=== PATIENT | male | born 1975 | race Caucasian/White ===

== ENCOUNTER 2019-01-02 19:56 | Emergency (ER) | payer OTHER ==
[2019-01-02] MEDS ORDERED: NAPROXEN 250 MG TABLET PO STA (21:10)
[2019-01-02] MEDS ORDERED: DEXAMETHASONE 10 MG/ML VIAL PO STA (21:10)
[2019-01-02] MEDS ORDERED: diphenhydrAMINE 25 MG CAPSULE PO STA (21:11)
--- NOTE | 2019-01-02 21:14 | ED Physician Documentation ---
History of Present Illness - Stated complaint Stated Complaint: SORE THROAT/FEVER - Chief complaint Chief Complaint: General - Additonal information Additional information: 43-year-old male with 3 days of fever, chills, body aches, sore throat and generally not feeling well. The patient denies chest pain, shortness of breath or abdominal pain. The patient's symptoms improved with Tylenol. No other associated symptoms. Review of Systems Constitutional: reports: Fever, Chills, Myalgias, Fatigue Eyes: denies: Discharge Ears: denies: Ear pain Nose: reports: Congestion Throat: reports: Sore throat Cardiac: denies: Chest pain / pressure Respiratory: reports: Cough GI: denies: Abdominal Pain : denies: Dysuria Skin: denies: Rash Musculoskeletal: denies: Neck pain Neurologic: denies: Generalized weakness PD PAST MEDICAL HISTORY - Past Medical History Past Medical History: No - Past Surgical History Past Surgical History: No - Present Medications Home Medications: Ambulatory Orders Medication Instructions Recorded Confirmed No Known Home Medications 01/02/19 01/02/19 - Allergies Allergies/Adverse Reactions: Allergies Allergy/AdvReac Type Severity Reaction Status Date / Time No Known Drug Allergies Allergy Verified 01/02/19 20:03 - Social History Does the pt smoke?: No Smoking Status: Never smoker Does the pt drink ETOH?: No Does the pt have substance abuse?: No - Immunizations Immunizations are current?: Yes - POLST Patient has POLST: No PD ED PE NORMAL - General General: Alert and oriented X 3, No acute distress - HEENT HEENT: Atraumatic, PERRL, EOMI, Ears normal, Moist mucous membranes, Pharynx b enign - Cardiac Cardiac: RRR, Strong equal pulses - Respiratory Respiratory: No respiratory distress, Clear bilaterally - Derm Derm: Normal color - Extremities Extremities: No deformity - Neuro Neuro: Alert and oriented X 3, Normal speech - Psych Psych: Normal mood Results - Vitals Vitals: Vital Signs - 24 hr 01/02/19 20:00 Temperature 37.0 C Heart Rate 87 Respiratory 18 Rate Blood Pressure 109/71 O2 Saturation 95 Oxygen O2 Source Room air - Labs Labs: Laboratory Tests 01/02/19 20:15 Group A Strep Rapid Negative PD MEDICAL DECISION MAKING - ED course ED course: The patient's symptoms are suggestive of an influenza-like illness. The patient is outside the recommendations for Tamiflu, presently the patient appears appropriate for ongoing outpatient management. I discussed warning signs and r ecommended returning to the emergency department for any worsening or any concerns Departure - Departure Disposition: 01 Home, Self Care Clinical Impression: Influenza-like illness Condition: Good Instructions: ED Flu Comments: Please follow-up with primary care for recheck and reevaluation Please return to the emergency department for any worsening or any concerns.
[2019-01-02 21:34] VITALS: BP 126/83
== END 2019-01-02 21:36 | disposition home or self-care (01) ==
LOC: ED 19:56
DX: J02.9 Acute pharyngitis, unspecified (principal); R50.9 Fever, unspecified; R05 Cough; M79.10 Myalgia, unspecified site; R53.83 Other fatigue
CPT/HCPCS: 87070; 87430; 99283; A9270

== ENCOUNTER 2020-06-30 07:36 | Outpatient (CLI) | payer OTHER ==
--- NOTE | 2020-06-30 09:22 | MRI Report ---
PROCEDURE: Cervical Spine W/O INDICATIONS: Neck pain, back pain TECHNIQUE: Noncontrast sagittal T1 spin echo and T2 fast spin echo, sagittal STIR, foraminal oblique sagittal T2 fast spin echo, and axial gradient echo or T2 fast spin echo through the cervical spine. COMPARISON: None. FINDINGS: Image quality: Excellent. Alignment and Curvature: There is normal bony alignment. Bone Marrow: Marrow demonstrates normal overall signal. There is no marrow edema or suspicious foca l marrow signal abnormality. Spinal Cord: Visualized spinal cord has normal size and signal. No cerebellar tonsillar herniation. Regional Soft Tissues: No paravertebral masses. Prevertebral soft tissues are normal in thickness. C2-C3: Normal in appearance. C3-C4: Normal in appearance. C4-C5: Normal in appearance. C5-C6: Normal in appearance. C6-C7: Normal in appearance. C7-T1: Normal in appearance. IMPRESSION: No spinal canal or neural foraminal stenosis. No significant degenerative changes in the cervical spi ne. Reviewed by: London Addison MD on 06/30/2020 9:21 AM PDT Approved by: London Addison MD on 06/30/2020 9:21 AM PDT Station ID: [id number]
--- NOTE | 2020-06-30 09:26 | MRI Report ---
PROCEDURE: Lumbar Spine W/O INDICATIONS: Neck pain, back pain TECHNIQUE: Noncontrast sagittal T1 spin echo and T2 fast echo, sagittal STIR, axial T1 and T2 fast spin echo thr ough the lumbar spine. In cases with scoliosis, additional coronal T2 fast spin echo may be performe d. COMPARISON: None. FINDINGS: Image quality: Excellent. Alignment and Curvature: There is normal bony alignment. Bone Marrow: Discogenic marrow edema at the opposing L5-S1 endplates. Otherwise normal bone marrow si gnal intensity. Spinal Cord: Conus medullaris terminates at the normal level. Visualized cord demonstrates normal s ignal and size. Regional Soft Tissues: No paravertebral masses. T12-L1: Normal in appearance. L1-L2: Normal in appearance. L2-L3: No spinal canal or neural foraminal stenosis. L3-L4: No spinal canal or neural foraminal stenosis. L4-L5: Disc desiccation and height loss with trace disc bulge flattening the ventral thecal sac but producing no mass effect upon the traversing nerve roots. Foraminal components of the disc bulge and facet hypertrophy combine to produce mild bilateral neural foraminal stenosis. L5-S1: Disc desiccation and disc height loss with circumferential disc bulge flattening the ventral t hecal sac. Disc material mildly displaces the descending left S1 nerve roots within the left subartic ular zone (series 801 image 8). Foraminal components of the disc bulge combined with posterior osteop hytic ridging of the endplates and facet hypertrophy to produce mild bilateral neural foraminal steno sis. Small facet effusions are noted. IMPRESSION: Mild degenerative changes at L4-L5 and L5-S1. Marrow edema at the opposing L5-S1 endplates could represent a potential source nonradicular axial ba ck pain. Mass effect upon the descending left S1 nerve roots, without suspicion for impingement, although jerrell elation for any potential left S1 radicular symptoms is requested. Reviewed by: London Addison MD on 06/30/2020 9:25 AM PDT Approved by: London Addison MD on 06/30/2020 9:25 AM PDT Station ID: [id number]
== END 2020-06-30 07:37 | disposition home or self-care (01) ==
LOC: DI 07:36
DX: M54.2 Cervicalgia (principal); M51.36 Other intervertebral disc degeneration, lumbar region; M48.061 Spinal stenosis, lumbar region without neurogenic claudication; M51.37 Other intervertebral disc degeneration, lumbosacral region; M48.07 Spinal stenosis, lumbosacral region; M47.816 Spondylosis without myelopathy or radiculopathy, lumbar region; M47.817 Spondylosis without myelopathy or radiculopathy, lumbosacral region
CPT/HCPCS: 72141; 72148

== ENCOUNTER 2020-07-18 07:19 | Outpatient (CLI) | payer OTHER ==
--- NOTE | 2020-07-20 11:46 | MRI Report ---
PROCEDURE: Shoulder RT W/O INDICATIONS: RT SHOULDER PAIN TECHNIQUE: Noncontrast oblique coronal T2 fast spin echo with fat saturation, oblique sagittal T1 spin echo and T2 fast spin echo with fat saturation, axial T1 spin echo and T2 fast spin echo with fat saturation t hrough the shoulder. COMPARISON: None. FINDINGS: Image quality: Excellent. Rotator cuff: There is tendinosis and low-grade bursal surface partial-thickness tear involving dista l supraspinatus at its insertion on humeral head extending to muscular tendinous junction. Distal inf raspinatus tendinosis is seen. Distal subscapularis tendon is intact. No full-thickness rotator cuff tendon rupture. No rotator cuff muscle atrophy on sagittal images. Bones and bursae: No bone marrow contusions or fractures. [id number] acromioclavicular joint o steoarthritic changes are seen with downward osteophyte formation depressing on musculotendinous junc tion of supraspinatus. No pathologic subacromial/subdeltoid bursal fluid is present. Capsule and soft tissues: In the absence of intra-articular contrast, the labrum and glenohumeral li gaments appear intact. The long head of the biceps tendinosis is seen. The rotator interval appears normal, without fibrosis. The coracohumeral ligament is normal in thickness. IMPRESSION: 1. Tendinosis and low-grade bursal surface partial-thickness tear involving distal supraspinatus at i ts insertion on humeral head extending to muscular tendinous junction. Distal infraspinatus tendinosi s. 2. Mild to moderate acromioclavicular joint osteoarthritis. No fracture or dislocation. 3. No gross focal labral tear in the absence of intra-articular contrast. 4. Proximal intra-articular portion of long head of biceps tendinosis. Reviewed by: Kurtis Nichols MD on 07/20/2020 11:45 AM PDT Approved by: Kurtis Nichols MD on 07/20/2020 11:45 AM PDT Station ID: [id number]
== END 2020-07-18 07:20 | disposition home or self-care (01) ==
LOC: DI 07:19
DX: M19.011 Primary osteoarthritis, right shoulder (principal); M75.101 Unspecified rotator cuff tear or rupture of right shoulder, not specified as traumatic; M75.81 Other shoulder lesions, right shoulder